=== PATIENT | female | born 1980 | race Two or more races ===

== ENCOUNTER → 2024-10-23 | Outpatient (CLI) | payer MEDICAID, SELFPAY ==
--- NOTE | 2024-10-23 08:45 | XR_ITS ---
Examination: Breast ultrasound complete, bilateral Date and time of exam: October 23, 2024 0907 hours INDICATIONS: Mammogram July 24, 2024 6 mm focal asymmetry lower inner right breast anterior depth, bilateral breast pain one year Technique: Real-time grayscale ultrasonographic imaging bilateral breasts, including all 4 quadrants as well as nipple retroareolar and axillary regions. Findings: Sonographic images right and left breast demonstrated no cystic or solid masses IMPRESSION: BI-RADS Category 1: Negative study
--- NOTE | 2024-10-23 09:45 | XR_ITS ---
Examination: Diagnostic digital mammography, unilateral, right Computer aided detection 3-D breast Tomosynthesis, unilateral Date and time of exam: October 23, 2024 0926 hours INDICATIONS: Mammogram July 24, 2024 6 mm focal asymmetry lower inner right breast Technique: Nonmagnified MLO, CC views of the right breast have been obtained, reconstructed from 3-D Tomosynthesis images. R2 computer aided detection program utilized for evaluation of suspicious masses and/or abnormal calcifications. 3-D Tomosynthesis images obtained. Findings: The breast is heterogeneously dense, which may obscure small masses Focal asymmetry right breast is not confirmed on the spot compression views Impression: BI-RADS category 2: Benign findings Return to yearly follow-up mammography
== END | disposition home or self-care (01) ==
LOC: CDIM 08:40
PROVIDERS: PCP Family Medicine; Referring Provider Nurse Practitioner Family; Visit Provider Nurse Practitioner Family
DX: R92.321 Mammographic fibroglandular density, right breast (principal); N64.89 Other specified disorders of breast
CPT/HCPCS: 76641; 77061; 77065; G0279

== ENCOUNTER → 2025-09-20 | Outpatient (CLI) | payer MEDICAID, SELFPAY ==
--- NOTE | 2025-09-20 10:00 | XR_ITS ---
Examination: Abdomen sonogram, complete Date and time of exam: 09/20/2025 at 9:57 a.m. Technique: Multiple real-time grayscale transabdominal sonographic images of the abdomen have been obtained. Findings: The gallbladder is well visualized, gallbladder wall appears normal. There is a single echogenic gallstone measuring 0.8 cm in maximum diameter, it does create acoustic shadowing common bile duct measures 0.3 cm in diameter which is normal. Abdominal aorta appears normal throughout the abdomen No focal lesions are seen anywhere in the liver, it has normal homogeneous echogenicity throughout spleen measures 8.7 cm in length and appears normal. No ascites is identified anywhere. The directional color flow is normal in the portal veins and hepatic veins. The right kidney measures 10.1 cm in length with a normal-appearing cortex measuring 2 cm, left kidney measures 11.2 cm in length with a cortex measuring 1.7 cm color flow vascularity is normal throughout all portions of both kidneys, no calculi are seen no obstructive uropathy or mass lesions are noted IMPRESSION: 1. There is a single gallstone measuring maximum of 0.8 cm in diameter. In all other respects the gallbladder and common bile duct appear normal 2. The diffuse echogenicity throughout the liver might be very minimally prominent, however I do not strongly suspect fatty infiltration. Liver size is all right. 3. The head and mid body of the pancreas are visualized and appear essentially okay. 4 both kidneys are well seen and appear normal, no other abnormalities are identified
== END | disposition home or self-care (01) ==
LOC: CDIM 09:41
PROVIDERS: Referring Provider Internal Medicine Gastroenterology; Visit Provider Internal Medicine Gastroenterology
DX: K80.20 Calculus of gallbladder without cholecystitis without obstruction (principal); K76.9 Liver disease, unspecified
CPT/HCPCS: 76700